=== PATIENT | male | born 1935 | race Caucasian/White ===

== ENCOUNTER 2017-01-03 06:55 | Observation (INO) | payer MEDICARE, BC ==
[2016-12-27 11:54] LABS: ASCORBIC ACID (UR NOT ORDER) NEG (NEG); BILIRUBIN, URINE NEGATIVE (NEG); KETONE, URINE NEGATIVE (NEG); LEUKOCYTE ESTERASE(NOT OR LARGE (NEG); WBC (NOT ORDERED) (RFLEX) > 182 (0-5)
--- NOTE | ~2017-01-03 | OP ---
Record Of Operation [facility] [address] [place]. [address] NAME: JOVANNY DUNBAR : 39 STATUS : ADM Lashawn PAT#: [id number] AGE: 81 ADM/REG DATE : 01/03/17 MR#: [id number] REPORT SERV DATE: 01/03/17 DICTATED BY: TOMER FIGUEROA DATE: 01/03/17 REPORT STATUS : Draft TRANSCRIBED BY: MODL DATE: 01/03/17 DATE OF PROCEDURE: 01/03/2017 PREOPERATIVE DIAGNOSIS: Benign prostatic hypertrophy with bladder outlet obstruction. POSTOPERATIVE DIAGNOSIS: Benign prostatic hypertrophy with bladder outlet obstruction. OPERATIVE PROCEDURE: Cysto, TURP. ANESTHESIA: General endotracheal. SURGEON: Tomer Figueroa M.D. ESTIMATED BLOOD LOSS: 25 mL. SPECIMENS: Prostate chips. COMPLICATIONS: None. DRAINS: One #24, 30 mL 3-way Tapia catheter. IMMEDIATE POSTOP: Satisfactory. DESCRIPTION OF PROCEDURE: The patient was brought into the cysto suite, given inhalational anesthetic, and placed in lithotomy position under general inhalational anesthetic. Perineum and genitalia were prepped and draped in sterile fashion. Video cystourethroscopy was then performed using a #22 cystoscope Foroblique lens. Distal urethra was normal. Prostate showed bilobar hyperplasia with complete visual occlusion of bladder outlet. Bladder showed heavy trabeculation. The left ureteral orifice was easily identified. It was difficult to identify the right ureteral orifice. The left orifice was checked periodically throughout the resection to be dictated below and at the close of the resection, it was not involved in the resected field nor disturbed. At this point, the cystoscope was removed. The urethra was dilated with David sounds to 28 followed by insertion of a #26 continuous flow resectoscope sheath and obturator. The obturator was removed, replaced with a working element and Foroblique lens. The obstructing tissue was then resected in the following fashion: Initially, the anterior lobe was resected down. This was followed by resection of the left lateral lobe, right lateral lobe, floor, and apex, in that order. At the close of the procedure, the bladder neck was resected slightly. Care was taken not to disturb the identified left ureteral orifice. Hemostasis was obtained with electrocautery. Prostate chips were evacuated using the Preston evacuator. At this point, a #24, 30 mL 3-way Tapia catheter was placed in the bladder, balloon inflated, hooked to drainage with continuous irrigation, irrigant was clear. The patient was then awakened and sent to recovery in satisfactory condition. Record Of Operation [facility] [address] [place]. [address] NAME: JOVANNY DUNBAR : 39 STATUS : ADM Lashawn PAT#: [id number] AGE: 81 ADM/REG DATE : 01/03/17 MR#: [id number] REPORT SERV DATE: 01/03/17 DICTATED BY: TOMER FIGUEROA DATE: 01/03/17 REPORT STATUS : Draft TRANSCRIBED BY: PRACHI DATE: 01/03/17 MS/MODL Tomer Figueroa M.D. / [id number] CC: Kellee Capellan D.O.
[~2017-01-03 06:55] MED LIST: ASAB PO; ATRONASAL3 NAS; DEMA100 PO; FIBERCON PO; FLOMAX4 PO; IMDUR60 PO; LIPITOR80 MG PO; MICARDIS20 MG PO; MICARDIS40 PO; MULTIPLE VIT PO; PLAVIX PO; PROSCAR5 PO; PROTONIX PO; RANITIDINE300 MG PO; RENAL SFTGLS1 MG OR; TRAN200 PO; ZEMPLAR1 PO; ZYRTEC ALLGY10 MG PO
[2017-01-03 10:50] LABS: ASCORBIC ACID (UR NOT ORDER) NEG (NEG); BILIRUBIN, URINE NEGATIVE (NEG); KETONE, URINE NEGATIVE (NEG); LEUKOCYTE ESTERASE(NOT OR MOD (NEG); WBC (NOT ORDERED) (RFLEX) 134 (0-5)
[2017-01-04 07:34] LABS: BASOPHILS 0.1 %; BASOPHILS ABSOLUTE 0.01 10/3/uL (0.0-0.16); EOSINOPHILS 0 %; HEMOGLOBIN 11.5 g/dL (13.6-17.8); IMMATURE GRANULOCYTES 0.2 %; IMMATURE GRANULOCYTES ABSOLUTE 0.03 10/3/uL (0.0-0.11); LYMPHOCYTES 7.9 %; LYMPHOCYTES ABSOLUTE 1.24 10/3/uL (0.67-4.30); MEAN CORPUS HGB CONC 33.8 g/dL (32.0-36.0); MEAN CORPUSCULAR HEMOGLOB 32.3 pg (26.0-34.0); MEAN PLATELET VOLUME 10.3 fL (9.2-13.0); MONOCYTES 5.8 %; MONOCYTES ABSOLUTE 0.91 10/3/uL (0.21-1.20); NEUTROPHILS ABSOLUTE 13.54 10/3/uL (2.02-8.40); PLATELET COUNT 187 10/3/uL (150-400); RBC DISTRIBUTION WIDTH 13.1 % (12.0-16.0); RED CELL COUNT 3.56 10/6/uL (4.7-6.1)
[2017-01-04 07:35] LABS: MANUAL DIFF NO %; MEAN CORPUSCULAR VOLUME 95.5 fL (80-100); WHITE BLOOD CELLS 15.7 10/3/uL (4.5-10.5)
[2017-01-04 07:46] LABS: ALBUMIN 2.5 G/DL (3.5-5.0); BUN (BLOOD UREA NITROGEN) 30 MG/DL (6-23); CALCIUM, SERUM 8.7 MG/DL (8.5-10.4); CHLORIDE, SERUM 111 MMOL/L (96-112); CO2 (CARBON DIOXIDE) 20 MMOL/L (24-34); CREATININE 2.13 MG/DL (0.70-1.30); GFR AFRICAN AMERICAN 33 ML/MIN (>=60); GFR NON AFRICAN AMERICAN 29 ML/MIN (>=60); GLUCOSE, SERUM 138 MG/DL (60-99); PHOSPHORUS, SERUM 2.8 MG/DL (2.5-4.5); POTASSIUM, SERUM 4.5 MMOL/L (3.5-5.3); SODIUM, SERUM 141 MMOL/L (135-148)
[2017-01-04 15:26] LABS: ASCORBIC ACID (UR NOT ORDER) NEG (NEG); BILIRUBIN, URINE NEGATIVE (NEG); KETONE, URINE NEGATIVE (NEG); LEUKOCYTE ESTERASE(NOT OR LARGE (NEG); WBC (NOT ORDERED) (RFLEX) 136 (0-5)
[2017-01-05] MEDS ORDERED: DSS PO (18:12)
== END 2017-01-05 20:00 | disposition home or self-care (01) ==
LOC: SDC 06:55 → SDC/OF 10:30 → 4SO 11:59
PROVIDERS: Urology
PROC: 0VT08ZZ Resection of Prostate, Via Natural or Artificial Opening Endoscopic (ICD-10-PCS; principal; 2017-01-03 08:45)
DX: N34.2 Other urethritis (principal); N40.1 Benign prostatic hyperplasia with lower urinary tract symptoms; N13.8 Other obstructive and reflux uropathy; N32.89 Other specified disorders of bladder; I25.10 Atherosclerotic heart disease of native coronary artery without angina pectoris; I12.9 Hypertensive chronic kidney disease with stage 1 through stage 4 chronic kidney disease, or unspecified chronic kidney disease; N18.4 Chronic kidney disease, stage 4 (severe); J44.9 Chronic obstructive pulmonary disease, unspecified; Z88.8 Allergy status to other drugs, medicaments and biological substances; Z91.041 Radiographic dye allergy status; Z79.82 Long term (current) use of aspirin; Z79.899 Other long term (current) drug therapy; Z82.49 Family history of ischemic heart disease and other diseases of the circulatory system; Z83.3 Family history of diabetes mellitus; K21.9 Gastro-esophageal reflux disease without esophagitis; Z95.5 Presence of coronary angioplasty implant and graft; Z87.891 Personal history of nicotine dependence; E78.5 Hyperlipidemia, unspecified; Z98.890 Other specified postprocedural states; Z99.2 Dependence on renal dialysis
CPT/HCPCS: 80069; 81001; 85025; 87077; 87086; 87186; 88305; 94660; 94770; A9270-GY; G0378; J0290; J2405; J2710; J3010